=== PATIENT | male | born 1950 | race Caucasian/White ===

== ENCOUNTER → 2017-06-23 | Outpatient (CLI) | payer MEDICARE, OTHER ==
--- NOTE | 2017-06-23 13:23 | Diagnostic Imaging Report ---
PROCEDURE: MRI lumbar spine. TECHNIQUE: Multiplanar, multisequence MRI of the lumbar spine was performed without contrast. INDICATION: Injury, pain in the left leg and left foot. FINDINGS: There are no previous MRI examinations available for comparison. The plain film examination of the lumbar spine performed on 09/13/2013 noted degenerative disc and bony disease at L4-5 and L5-S1. The T2 sagittal images of this exam show the vertebral body heights and alignment to be within normal limits. There is desiccation of the disc at every level, and there is narrowing of the disc spaces at L3-4 and L4-5 and to a lesser degree at L5-S1 and L2-3. At the L4-5 level, there is a broad-based disc bulge centrally. The disc flattens the ventral aspect of the thecal sac and narrows the AP diameter to 6.2 mm. There is also narrowing of the neural foramen bilaterally at this level. There is also trefoil stenosis at the L3-4 level but to a lesser degree. The AP diameter of the thecal sac is narrowed to approximately 8.0 mm. There is narrowing of the neural foramen bilaterally, particularly on the right. At the L2-3 level, there is a broad-based disc bulge which flattens the ventral aspect of the thecal sac and narrows the AP diameter to approximately 8.6 mm. There is also mild narrowing of the neural foramen on the right at this level. At the L5-S1 level, there is a broad-based disc bulge. The AP diameter of the thecal sac is narrowed to 8.1 mm. There is also narrowing of the neural foramen bilaterally. There is no evidence for spinal stenosis or nerve root encroachment at L1-2. There is no abnormal signal arising from the cord or the vertebral bodies to indicate an acute abnormality. There is no sign of a paraspinal mass. There is a 2.7 cm benign-appearing cyst along the medial aspect of the left kidney. IMPRESSION: 1. 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 The L4-5 level is the most significantly affected, and there is narrowing of the neural foramen bilaterally at this level as well. 2. There is no acute bony abnormality identified, and there is no sign of a cord lesion. 3. These results were discussed with Dr. Perez. Dictated by: Dictated on workstation # [id number]
== END ==
LOC: RAD 11:21
PROVIDERS: ATTEND Physical Medicine & Rehabilitation
DX: M48.07 Spinal stenosis, lumbosacral region (principal); M51.16 Intervertebral disc disorders with radiculopathy, lumbar region
CPT/HCPCS: 72148

== ENCOUNTER → 2017-09-23 | Outpatient (RCR) | payer MEDICARE, OTHER | END | disposition home or self-care (01) | PROVIDERS: ATTEND Physical Medicine & Rehabilitation | DX: M51.16 Intervertebral disc disorders with radiculopathy, lumbar region (principal) ==

== ENCOUNTER 2017-10-07 09:19 | Outpatient (RCR) | payer MEDICARE, OTHER | END 2017-12-14 11:20 | disposition home or self-care (01) | PROVIDERS: ATTEND Physical Medicine & Rehabilitation | DX: M51.16 Intervertebral disc disorders with radiculopathy, lumbar region (principal) ==